=== PATIENT | male | born 1980 | race Caucasian/White ===

== ENCOUNTER 2021-11-29 20:15 | Emergency (ER) | payer OTHER ==
[~2021-11-29 20:15] MED LIST: MEDROL 4MG DOSEP4 MG PO; VENTOLIN HFA IN18 GM INH
[2021-11-29 20:58] LABS: BASOPHIL 0.8 % (0-2); EOSINOPHIL 8.2 % (0-5); HCT 39.1 % (42.0-52.0); HGB 13.2 g/dl (13.2-18.0); LYMPHOCYTE 32.9 % (15-48); MCH 31.1 pg (25.0-31.0); MCHC 33.8 g/dL (32.0-36.0); MCV 92.2 fL (78.0-100.0); MPV 9.2 fL (6.0-9.5); NEUTROPHIL 49.8 % (41-80); NRBC 0; PLT 203 K/uL (150-400); RBC 4.24 M/uL (4.70-6.00); RDW 12.9 % (11.5-14.0); WBC 6.6 K/uL (4.0-10.5)
[2021-11-29 21:03] LABS: INR 0.93 (0.9-1.2); PROTHROMBIN TIME 12.2 SECONDS (11.9-13.9); PTT 27.5 SECONDS (24.9-34.6)
[2021-11-29 21:11] LABS: ALBUMIN 3.4 g/dL (3.4-5.0); BILIRUBIN - TOTAL 0.2 mg/dL (0.2-1.0); BUN/CREAT RATIO (CALC) 16.8 RATIO; CREATININE 0.95 mg/dL (0.67-1.17); GLOBULIN (CALCULATION) 3.6 g/dL
[2021-11-29 22:46] LABS: CORONAVIRUS 2019 SARS-COV-2 NEGATIVE (NEGATIVE); INFLUENZA A NAA NEGATIVE (NEGATIVE)
== END 2021-11-30 00:11 | disposition home or self-care (01) ==
LOC: FER 20:15
PROVIDERS: Emergency Medicine
DX: J44.1 Chronic obstructive pulmonary disease with (acute) exacerbation (principal); F17.200 Nicotine dependence, unspecified, uncomplicated; Z20.822 Contact with and (suspected) exposure to COVID-19
CPT/HCPCS: 36415; 71045; 80053; 84484; 85025; 85610; 85730; 93005; 94640; 94664; J1885; J2405; J2930; U0002